=== PATIENT | male | born 1970 | race Caucasian/White ===

== ENCOUNTER → 2016-05-10 | Outpatient (CLI) | payer BC ==
--- NOTE | 2016-05-10 12:01 | DI ---
MRI THORACIC SPINE W/O CN,05/10/2016 10:52 AM: Clinical History: Wedge compression fracture of the 12th thoracic vertebral body. Previous Exam: MRI lumbar spine performed April 22 Findings: Multiplanar MR images are obtained through the thoracic spine without contrast. There is a small broa d-based disc bulge involving the T7/8 intervertebral disc with a 2 mm broad-based disc bulge. There i s normal signal within the thoracic spinal cord. There is normal course and caliber. There is some very mild compression of the 12th thoracic vertebral body without any significant edema . There are some mild endplate edema, but no marrow edema. There is no neural foraminal narrowing at any level. Impression: No evidence of acute compression. There is some very mild anterior wedging of the 12th thoracic verte bral body, but no evidence of acute compression fracture.
== END ==
LOC: MRI 10:48
PROVIDERS: ATTEND Physician Assistant
DX: S22.080A Wedge compression fracture of T11-T12 vertebra, initial encounter for closed fracture (principal); M47.814 Spondylosis without myelopathy or radiculopathy, thoracic region
CPT/HCPCS: 72146

== ENCOUNTER 2018-04-10 08:55 | Inpatient (IN) ==
[2018-04-10] MEDS ORDERED: ONDANSETRON 4 MG/2 ML VIAL IVP ONE (09:14)
[2018-04-10] MEDS ORDERED: Sodium Chloride 0.9% 1,000 ML PRIMARY IV ONE (09:14)
[2018-04-10] MEDS ORDERED: MORPHINE SULFATE 4 MG/1 ML IVP ONE (09:14)
--- NOTE | 2018-04-10 09:19 | PDOC ---
Abdomen/Flank HPI - General Chief Complaint: Abdomen Pain Stated Complaint: ABD PAIN X3 DAYS, GALL STONES ON US Date Seen by Provider: 04/10/18 Time Seen by Provider: 09:12 Source: POSITIVE: Patient Exam Limitations: POSITIVE: No limitations Nurse's Notes Reviewed & Considered: Yes - History of Present Illness Initial Comments: This is a well-developed, well-nourished, 48-year-old male, with right upper quadrant abdominal pain. Patient was seen in the emergency room Saturday of this week for right upper quadrant abdominal pain that was sudden in onset. Patient had eaten earlier in the evening and subsequently developed right upper quadrant abdominal pain then nausea vomiting. CT scan showed no acute abnormalities. The ER doctor scheduled the patient for an outpatient ultrasound which was performed this morning. Ultrasound this morning showed thickening of the gallbladder wall with fluid around the gallbladder itself concerning for cholecystitis. Patient was directed to return to the emergency room for further evaluation. At this time he denies any headache, no sore throat, no chest pain, he does have pain with deep respirations but no shortness of breath. He does have nausea but no vomiting, positive for right upper quadrant abdominal pain. He denies any diarrhea, no hematuria or dysuria, no rashes, no myalgias or arthralgias. Patient states his pain has been controlled with the medicine he was given on the and denies any fever or chills but does have sweats and associates these with increased pain. Body Location Affected: REPORTS: Abdomen Timing: REPORTS: Constant Duration: <1 week Severity: Severe Quality: REPORTS: "Pain" Abdominal Pain Onset Location: REPORTS: RUQ Abdominal Pain Radiation: REPORTS: RUQ Context: REPORTS: None Modifying Factors: improves with: Analgesics Associated Symptoms: REPORTS: Diaphoresis, Nausea, Vomiting Similar Symptoms Previously: No Recent Care Received: REPORTS: Denies Any Prior Injuries Related to Current Complaint?: No - Patient Home Medications Home Medications: Home Medications Ibuprofen [Advil] 1 tab PO PRN tab 05/08/16 Omeprazole Magnesium [Prilosec Otc] 20 mg PO DAILY 04/07/18 Hydrocodone/Acetaminophen [Hydrocodon-Acetaminophen 5-325] 1 ea PO Q4-6H PRN 04/10/18 - Patient Allergies Allergies/Adverse Reactions: Allergies Allergy/AdvReac Type Severity Reaction Status Date / Time No Known Allergies Allergy Verified 04/10/18 09:00 Past Medical History - heen HEENT History: Denies History Cardiovascular History: Denies History Respiratory History: Denies History Gastrointestinal History: GERD, Gallbladder Disease Genitourinary History: Denies History Endocrine History: Denies History Musculoskeletal History: Denies History Prosthesis or Implant: No Neurological History: Denies History Blood Disorders: Denies History Psychiatric History: Denies History Male Reproductive History: Denies History Cancer History: Denies History In Past Year Been Physically Harmed or Verbally Threatened: No History of MDRO: No Tobacco Use: Never Smoker Alcohol Use: Rarely In the Past 12 Months, Have Used or Abuse Any Substance: None Previous Surgical History: Yes Type / Date of Surgery: C-7 laminectomy/back surgery/tonsils Anesthesia Reactions: No Malignant Hyperthermia: No Significant Family History: No pertinent family hx ROS - Limitations ROS Limitations: No Limitations Constitution: REPORTS: Diaphoresis Cardiovascular: REPORTS: Denies Cardiac Symptoms Respiratory: REPORTS: Hurts To Breathe Neurological: REPORTS: Denies Neuro Symptoms Gastrointestinal: REPORTS: Abdominal Pain, Nausea, Vomitting Endocrine: REPORTS: Denies Symptoms Musculoskeletal: REPORTS: Denies MS Symptoms Genitourinary: REPORTS: Denies Symptoms Eyes: REPORTS: Denies Symptoms ENT: REPORTS: Denies Symptoms Skin: REPORTS: Denies Skin Symptoms Lympathic: REPORTS: Denies Lympathic Symptoms Immunologic: POSITIVE: Denies Symptoms Psychiatric: POSITIVE: Denies Psych Symptoms Abdominal/Flank Pain PE - General Appearance General Appearance: POSITIVE: Alert, Cooperative, No Acute Distress, No Evidence of Trauma - HEENT HEENT: POSITIVE: Head Inspection Nml, Eyes Inspection Nml, Ears Inspection Nml, Nose Inspection Nml, Oral/Dental Inspect. Nml, Pharynx Inspect. Nml, PERRL, EOMI - Neck Neck: POSITIVE: Normal Inspection, No Apparent Injury - Respiratory Respiratory: POSITIVE: No Respiratory Distress, Breath Sounds Normal, Chest Non- Tender - Cardiovascular Cardiovascular: POSITIVE: Regular Rate and Rhythm, Heart Sounds Normal, Strong Pulses Peripheral Pulses: Radial (R): 4+ - Chest Chest: POSITIVE: Non Tender - Abdomen Abdomen: Soft: (All Quadrants), Normal Bowel Sounds: (All Quadrants), Denies Tenderness: (LLQ), (RLQ), (LUQ), No Splenomegaly: (All Quadrants), No Hepatomegaly: (All Quadrants), No Guarding: (LUQ), (RLQ), (LLQ), No Rebound: (All Quadrants), No Palpable Pulse: (All Quadrants), No Palpabale Mass: (All Quadrants), No Distention: (All Quadrants), No Rigidity: (All Quadrants), Tenderness Noted: (RUQ), Guarding: (RUQ) - Back Back: POSITIVE: Normal Inspection - Skin Skin: POSITIVE: Intact, Normal For Race, Warm, Dry, No Rash - Extremities Extremity: Non-Tender: (All Extremities), Normal ROM: (All Extremities), Normal Inspection: (All Extremities), Pelvis Stable: (All Extremities) - Neurological Neurological: POSITIVE: Affect Apporpriate, Oriented X3, Motor Normal, Sensation Normal - Psychological Psychiatric: POSITIVE: Affect Appropriate, Mood Appropriate Abdomen Progress - Results Reviewed by me Xrays/CTs/US Reviewed by me: Yes Discussed with Radiologist: Yes Lab Results Reviewed by Me: Yes CBC and BMP: 04/10/18 09:26 04/10/18 09:26 - Patient's Progress Pain Medication Addressed: POSITIVE: Yes Re-examine Time: 10:18 Status: POSITIVE: Improved MDM / ED Course: Patient was evaluated, an IV started, blood drawn and sent to the lab for studies. Review of his ultrasound obtained earlier this morning and was obtained. Findings: Ultrasound shows cholelithiasis with cholecystitis. CBC shows a white count of 13.91 hemoglobin and hematocrit platelets are normal. Venous blood gas shows a pH of 7.48, PCO2 of 32, bicarbonate 23, base excess is 0. CMP shows potassium at 3.7. CRP is elevated at 16.7. Magnesium is 1.8. Amylase is 46, lipase is 23. Assessment:: Cholelithiasis with cholecystitis. Plan: Patient receives normal saline, morphine, Zofran, and Zosyn. He is being admitted by the hospitalist and consultation is made with general surgery. Surgeon will see the patient on the floor. - Consult Consult (If Yes, Name of Consulting MD & Time Called): Yes (Dr. Redding 1015hrs, Dr. Sands 1020 hrs.) Consulting MD will see pt:: [facility] [place] Admit Counseled: POSITIVE: Patient, Family, RE: Lab Results, RE: Radiology Results, RE: DX, RE: Need for F/U Patient Care Time - Estimated PCT Patient Care Time (In Minutes): 20 Vital Signs - VS Reviewed Vital Signs Reviewed: Yes Discharge Clinical Impression: Cholecystitis, Cholelithiasis Discharge Disposition: Admit to Inpatient Condition: Stable Follow Up With: NONE,NONE [Primary Care Provider] - Date Decision to Admit to Inpatient: 04/10/18 Time Decision to Admit to Inpatient: 10:18
[2018-04-10 09:26] LABS: VENOUS PH 7.48 (7.32-7.42)
[2018-04-10 09:33] LABS: BASOPHILS # (AUTO) 0.02 10*3/UL; BASOPHILS % (AUTO) 0.1 % (0-1); EOSINOPHILS % (AUTO) 0.7 % (0-8); Hematocrit [HCT] 46.7 % (42.0-52.0); Hemoglobin [HGB] 16.6 g/dL (14.0-18.0); LYMPHOCYTES # (AUTO) 2.07 10*3/uL; MEAN CORPUSCULAR HEMOGLOBIN 31.6 PG (27-31); MEAN CORPUSCULAR HGB CONC 35.5 g/dL (33-37); MEAN CORPUSCULAR VOLUME 88.8 FL (80-90); MEAN PLATELET VOLUME 11.1 FL (7.4-12.2); MONOCYTES % (AUTO) 13.7 % (5-15); NEUTROPHILS # (AUTO) 9.77 10*3/UL; NEUTROPHILS % (AUTO) 70.2 % (50-80); RED BLOOD COUNT 5.26 10^6/uL (4.70-6.10)
[2018-04-10 09:42] LABS: BLOOD UREA NITROGEN 8 mg/dL (7-22); LIPASE 23 IU/L (23-300); SERUM ALBUMIN 4.5 g/dL (3.5-4.8)
[2018-04-10 09:44] LABS: PLATELET MORPHOLOGY COMMENT NORMAL MORPHOLOGY (NORM); RBC MORPHOLOGY COMMENT NORMAL MORPHOLOGY (NORM); WBC MORPHOLOGY COMMENT NORMAL MORPHOLOGY (NORM)
[2018-04-10] MEDS ORDERED: Piperacillin/Tazobactam Inj 3.375 GM in Sodium Chloride 0.9% 100 ML IV ONE (10:19)
[2018-04-10] MEDS ORDERED: ONDANSETRON 4 MG/2 ML VIAL IVP PRN (11:54)
[2018-04-10] MEDS ORDERED: LIDOCAINE W/ SODIUM BICARB 0.5 ML SYR SUBD PRN ×2 (11:54→14:09)
[2018-04-10] MEDS ORDERED: ACETAMINOPHEN 325 MG TABLET PO PRN (11:54)
--- NOTE | 2018-04-10 12:02 | PDOC ---
HPI - History of Present Illness Date of Service: 04/10/18 Time of Service: 12:00 Chief Complaint: Abdominal pain of 2 days' duration History of Present Illness: This is a 48 years old male with past medical history significant for history of GERD who presented to the hospital history of abdominal pain of 2 days' duration, he came into the ER on Saturday with abdominal pain felt in right upper mid epigastric pain, he did vomit that night, he did have a CT of the abdomen which was negative then and he was booked to have an ultrasound of his gallbladder today. He continued to have the pain he takes pain medication for it. He is been on clear liquid mostly. Today an ultrasound did show gallstones with findings suggestive of acute cholecystitis so he was sent to the ER. In the ER did show elevated white count and CRP was also elevated. He was given fluids and antibiotics and was admitted. Currently he rates his pain maybe 3 out of 10. There is no radiation elsewhere. No diarrhea. The vomiting did stop. No fever but he did have some shakes on Saturday. Past Medical History Medical History: 1. History of GERD Surgical History: 1. History of tonsillectomy. 2. History of lumbar discectomy. 3. History of cervical spine surgery Family History: Reviewed an Not Pertinent Past Social History: He does not smoke but he chews, rarely drinks no drugs. Tobacco Use: Never Smoker Do you dip or chew tobacco: Yes In the Past 12 Months, Have Used or Abuse Any of the Following Substance: None Alcohol Use: Rarely Medication / Allergies Home Medications: Home Medications Medication Instructions Recorded Confirmed Type Ibuprofen [Advil] 1 tab PO PRN tab 05/08/16 04/10/18 History Omeprazole Magnesium [Prilosec Otc] 20 mg PO DAILY 04/07/18 04/10/18 History Hydrocodone/Acetaminophen 1 ea PO Q4-6H PRN 04/10/18 04/10/18 History [Hydrocodon-Acetaminophen 5-325] Allergies/Adverse Reactions: Allergies Allergy/AdvReac Type Severity Reaction Status Date / Time No Known Allergies Allergy Verified 04/10/18 09:00 Review of Systems - Review of Systems All Systems: Reviewed & No Additional Complaints Except as Stated Exam - Vitals Vital Signs: Vital Signs Temperature 98.8 F Temperature Source Temporal Artery Scan Pulse Rate [Pulse Oximeter 99 Right] Pulse Rate 88 Respiratory Rate 16 Blood Pressure [Left Arm] 105/85 Blood Pressure 116/77 Pulse Ox 94 Oxygen Delivery Method Room Air Height 5 ft 10 in Weight 175 lb - General General Appearance: No Acute Distress, Cooperative - Head Head Exam: Normal Inspection - Eye Eye Exam: POSITIVE: Normal Appearance - ENT ENT Exam: POSITIVE: Normal Exam - Neck Neck Exam: Normal Inspection - Respiratory Respiratory Exam: POSITIVE: Clear to Auscultation - Bilaterally - Cardiovascular Additional Cardiovascular Details: Somewhat decreased breath sound more on the right lower lung. - GI/Abdominal GI/Abdominal Exam: POSITIVE: Normal Bowel Sounds, Non Distended, Soft, No Organomegaly Additional GI/Abdominal Exam Details: We did notice tenderness in the epigastric and right upper quadrant area. - Rectal Rectal Exam: POSITIVE: Deferred - External Exam: POSITIVE: Deferred Exam: POSITIVE: Deferred - Extremities Extremities Exam: POSITIVE: Normal Inspection - Back Back Exam: POSITIVE: Normal Inspection - Neurological Neurological Exam: POSITIVE: Alert, Oriented x 3, CN II-XII Intact, No Facial Droop, Speech Intact / Clear, Moves All Extremities Equally - Psychiatric Psychiatric Exam: POSITIVE: Normal Affect - Integumentary Integumentary Exam: POSITIVE: Normal Color Results - Labs CBC and BMP: 04/10/18 09:26 04/10/18 09:26 - Imaging Status: Report Reviewed by Me (US abdomen 1. Cholelithiasis with constellation of findings concerning for acute cholecystitis. The patient was directed to report to the emergency department for definitive management.) Assessment and Plan - Patient Problems (1) Cholecystitis Current Visit: Yes Status: Acute Comment: I Did speak with Dr. Redding, will put him on clear liquid, antibiotics and IV pain medication. Will put him on nothing by mouth after midnight. He will see him later on today likely surgery tomorrow. Code(s): K81.9 - Cholecystitis, unspecified
[2018-04-10] MEDS: MORPHINE SULFATE 2 MG/1 ML IVP PRN ×4 (13:04→21:52)
--- NOTE | 2018-04-10 14:04 | CONSULT ---
Consult Note - Consult Consult Date: 04/10/18 Reason for Consult: PreOp Consulation : General Surgery Requesting Physician: Dr. Yash Bonner Primary Care Provider: NONE NONE - History of Present Illness History of Present Illness: 40-year-old gentleman who on Saturday night developed some midepigastric rapper quadrant abdominal pain. He came in the emergency department is felt to have biliary colic. His brought back today to have an ultrasound. Today's white count is elevated at 14,000. Ultrasound showed cholelithiasis and thickened gallbladder wall and paracystic fluid indicating acute cholecystitis. Eyes any fevers or chills. Past Medical History Medical History: 1. History of GERD Surgical History: 1. History of tonsillectomy. 2. History of lumbar discectomy. 3. History of cervical spine surgery Family History: Reviewed an Not Pertinent Past Social History: He does not smoke but he chews, rarely drinks no drugs. Tobacco Use: Never Smoker Do you dip or chew tobacco: Yes In the Past 12 Months, Have Used or Abuse Any of the Following Substance: None Alcohol Use: Rarely Medication / Allergies Home Medications: Home Medications Medication Instructions Recorded Confirmed Type Ibuprofen [Advil] 1 tab PO PRN tab 05/08/16 04/10/18 History Omeprazole Magnesium [Prilosec Otc] 20 mg PO DAILY 04/07/18 04/10/18 History Hydrocodone/Acetaminophen 1 ea PO Q4-6H PRN 04/10/18 04/10/18 History [Hydrocodon-Acetaminophen 5-325] Allergies/Adverse Reactions: Allergies Allergy/AdvReac Type Severity Reaction Status Date / Time No Known Allergies Allergy Verified 04/10/18 09:00 Results - Labs CBC and BMP: 04/10/18 09:26 04/10/18 09:26 Exam - Vitals Vital Signs: Vital Signs Temperature 98.8 F Temperature Source Temporal Artery Scan Pulse Rate [Pulse Oximeter 99 Right] Pulse Rate 88 Respiratory Rate 16 Blood Pressure [Left Arm] 105/85 Blood Pressure 116/77 Pulse Ox 94 Oxygen Delivery Method Room Air Height 5 ft 10 in Weight 175 lb - General General Appearance: No Acute Distress, Cooperative - ENT ENT Exam: POSITIVE: Normal Exam - Neck Neck Exam: Normal Inspection, Full ROM - Respiratory Respiratory Exam: POSITIVE: Clear to Auscultation - Bilaterally - GI/Abdominal GI/Abdominal Exam: POSITIVE: Normal Bowel Sounds, Non Distended, Soft, No Hepatomegaly, No Splenomegaly Additional GI/Abdominal Exam Details: Right upper quadrant abdominal pain no rebound or rigidity Assessment and Plan - Patient Problems (1) Acute cholecystitis due to biliary calculus Current Visit: Yes Status: Acute Code(s): K80.00 - Calculus of gallbladder with acute cholecystitis without obstruction - Assessment / Plan Additional Assessment/Plan Details: I would recommend the patient having a laparoscopic cholecystectomy. I have discussed the pathophysiology about gallstones and gallbladder disease. I have discussed the risk of surgery and the potential complications that could occur w ith the surgery. I also discussed alternative treatment options. I have gone over the surgical technique with the patient. The patient understands this information. I also discussed the difference between single site using the da Courtney surgery and also the traditional laparoscopic surgery. The patient be scheduled at the first available date. Questions that the patient had were answered. CPT 59216
[2018-04-10] MEDS ORDERED: Nasal Sanitizer POPSWAB ampule 3 AMP (Nozin) PREOP DOSE ENOS SCH (14:15)
[2018-04-10] MEDS: Piperacillin/Tazobactam Inj 3.375 GM in Sodium Chloride 0.9% 100 ML IV SCH ×2 (16:06→21:52)
[2018-04-10] MEDS: NICOTINE 21 MG /DAY PATCH TRANSDERM SCH (17:37)
[2018-04-10] MEDS: Lactated Ringers 1,000 ML PRIMARY IV SCH (18:43)
[2018-04-10] MEDS ORDERED: PANTOPRAZOLE IV 40 MG VIAL IVP SCH (21:00)
[2018-04-11] MEDS: Lactated Ringers 1,000 ML PRIMARY IV SCH ×2 (00:04→08:30)
[2018-04-11] MEDS: MORPHINE SULFATE 2 MG/1 ML IVP PRN ×3 (01:27→07:12)
[2018-04-11] MEDS: Piperacillin/Tazobactam Inj 3.375 GM in Sodium Chloride 0.9% 100 ML IV SCH ×2 (04:18→09:56)
[2018-04-11 06:46] LABS: BASOPHILS # (AUTO) 0.02 10*3/UL; BASOPHILS % (AUTO) 0.2 % (0-1); EOSINOPHILS # (AUTO) 0.24 10*3/UL; EOSINOPHILS % (AUTO) 2.8 % (0-8); Hemoglobin [HGB] 14.5 g/dL (14.0-18.0); LYMPHOCYTES # (AUTO) 1.72 10*3/uL; MEAN CORPUSCULAR HEMOGLOBIN 31.9 PG (27-31); MEAN CORPUSCULAR HGB CONC 34.5 g/dL (33-37); MEAN CORPUSCULAR VOLUME 92.3 FL (80-90); MEAN PLATELET VOLUME 10.9 FL (7.4-12.2); MONOCYTES # (AUTO) 1.16 10*3/UL (0.3-0.8); MONOCYTES % (AUTO) 13.5 % (5-15); NEUTROPHILS # (AUTO) 5.46 10*3/UL; NEUTROPHILS % (AUTO) 63.3 % (50-80); RED BLOOD COUNT 4.55 10^6/uL (4.70-6.10)
[2018-04-11 07:10] LABS: BLOOD UREA NITROGEN 6 mg/dL (7-22); BUN/CREATININE RATIO 6.66 (6-20); SERUM ALBUMIN 3.3 g/dL (3.5-4.8)
[2018-04-11 07:17] LABS: PLATELET MORPHOLOGY COMMENT NORMAL MORPHOLOGY (NORM); RBC MORPHOLOGY COMMENT NORMAL MORPHOLOGY (NORM); WBC MORPHOLOGY COMMENT NORMAL MORPHOLOGY (NORM)
--- NOTE | 2018-04-11 08:01 | PDOC(PROG) ---
Date of Service: 04/11/18 Time of Service: 08:00 Interval History: Subjective Patient feels better today compared to yesterday. He rates his abdominal pain maybe 3 out of 10. No nausea or vomiting. Objective : Data - Labs CBC and BMP: 04/11/18 06:20 04/11/18 06:20 Objective : Exam - General General Appearance: No Acute Distress, Cooperative - Head Head Exam: Normal Inspection - Eye Eye Exam: Normal Appearance - ENT ENT Exam: Normal Exam - Neck Neck Exam: Normal Inspection - Respiratory Additional Respiratory Exam Details: Slightly decreased breath sounds right lung base otherwise clear - Cardiovascular Cardiovascular Exam: RRR - GI/Abdominal GI/Abdominal Exam: Normal Bowel Sounds, Non Tender, Non Distended, Soft, No Organomegaly - Rectal Rectal Exam: Deferred - External Exam: Deferred Exam: Deferred - Extremities Extremities Exam: Normal Inspection - Back Back Exam: Normal Inspection - Neurological Neurological Exam: Alert, Oriented x 3, CN II-XII Intact, No Facial Droop, Speech Intact / Clear, Moves All Extremities Equally - Psychiatric Psychiatric Exam: Normal Affect - Integumentary Integumentary Exam: Normal Color Assessment and Plan - Patient Problems (1) Cholecystitis Status: Acute Comment: He looks and feels better today. His abdomen is not tender today. Co ntinue antibiotics. He'll be on Ringer lactate instead of the NS with the potassium he will have his surgery at 10:00 today. Code(s): K81.9 - Cholecystitis, unspecified
[2018-04-11] MEDS: NICOTINE 21 MG /DAY PATCH TRANSDERM SCH (09:56)
[2018-04-11] MEDS ORDERED: Iothalamate Meglumine 30 ML VIAL IV ONE (10:18)
[2018-04-11] MEDS ORDERED: BUPIVACAINE 0.25% W/ EPI - 10 ML VIAL ONE (10:18)
[2018-04-11] MEDS ORDERED: LIDOCAINE MPF 2% - 5 ML (20 MG/1 ML) ONE (10:18)
[2018-04-11] MEDS ORDERED: fentaNYL Inj 250 MCG/5 ML VIAL ONE (10:18)
[2018-04-11] MEDS ORDERED: PROPOFOL 10 MG/1 ML (200 MG/20 ML) VIAL IV ONE (10:18)
[2018-04-11] MEDS ORDERED: Sodium Chloride 0.9% vial 50 ML ONE (10:18)
[2018-04-11] MEDS ORDERED: MIDAZOLAM 5 MG/1 ML ONE (10:18)
[2018-04-11] MEDS ORDERED: ROCURONIUM 10 MG/1 ML - 5 ML VIAL IVP ONE (10:19)
[2018-04-11] MEDS ORDERED: KETAMINE HCL 100 MG/2 ML SYRINGE IV ONE (10:22)
[2018-04-11] MEDS ORDERED: HYDROmorphone 2 MG/1 ML IVP ONE (10:30)
[2018-04-11] MEDS ORDERED: LIDOCAINE W/ SODIUM BICARB 0.5 ML SYR ONE (10:39)
[2018-04-11] MEDS ORDERED: HYDROmorphone 2 MG/1 ML ONE ×2 (10:40→10:42)
[2018-04-11] MEDS ORDERED: SUFENTANIL 50 MCG/1 ML ONE (11:19)
[2018-04-11] MEDS ORDERED: Lactated Ringers 1,000 ML PRIMARY IV ONE (11:20)
[2018-04-11] MEDS ORDERED: SUGAMMADEX SODIUM 200 MG/2 ML VIAL IV ONE (12:05)
[2018-04-11] MEDS ORDERED: KETOROLAC 30 MG/1 ML VIAL ONE (12:05)
--- NOTE | 2018-04-11 12:25 | GEN.OPNOTE ---
Operative Note Surgery Date: 04/11/18 Preoperative Diagnosis: Acute cholecystitis Postoperative Diagnosis: Cholelithiasis of the gallbladder with acute cholecystitis Procedure: Laparoscopic cholecystectomy with intraoperative cholangiogram Surgeon: Dave Redding MD [employer] Consultant: Khoa Pugh MD Anesthesia Provider: David Singh CRNA Anesthesia Type: General Estimated Blood Loss (mL): 25 Fluids: LR please see anesthesia notes in EMR Pathology: Gallbladder sent Indications: Patient has cholelithiasis with acute cholecystitis Findings: Patient acutely edematous gallbladder consistent with acute cholecystitis. Atrophic cholangio-gram show no ductal obstruction of the common bile duct. I do not see the hepatic duct. Complications: None Operative Summary: Patient was brought in the operating room. Placed in supine position. Given general anesthetic. Was prepped draped sterile fashion. Timeout performed per protocols. Quarter percent Marcaine was infiltrated at all trocar sites. Small incision made below the umbilicus. Veress needle inserted pneumoperitoneum obtained. After adequate pneumoperitoneum a 10 mm trocar was placed using the Visiport. Under direct laparoscopic visualization a 10 mm trocar subxiphoid and 2 -5 mm in the midclavicular and midaxillary line. Appropriate instrument were placed. The large-bore needle into the gallbladder and aspirated out are last thick fluid. There was no pus. Gallbladder grasped at the fundus retracted over the liver edge. Gallbladder was grasped at Kaden's pouch. The cystic duct was dissected free.The cystic duct was clipped near the gallbladder. Intraoperative cholangiocatheter was placed through an angiocatheter. I then opened up the cystic duct with scissors. Intraoperative cardiogram catheter was placed. C-arm was brought in an intraoperative cholangiogram was then done with the aid of the C-arm. There is no evidence of obstruction of the common bile duct and identified the common bile duct the right hepatic duct did not ever see our get the left hepatic duct to fill.. The C-arm was removed. The cholangiogram was then removed. The cystic duct was doubly clipped and divided. Likewise the cystic artery was dissected free 3 hemoclips placed and divided. The gallbladder was dissected off liver's edge using electrocautery. The gallbladder was then removed through a subumbilical incision. The abdominal cavity was irrigated until clear. The trochars were removed. The umbilicus incision was closed with 0 Vicryl suture to the fascia. The skin was reapproximated using 4-0 Vicryl simple sutures. The remainder trocar sites were 5 mm defects we will close. The remainder skin incisions closed with 4-0 Vicryl. Steri-Strips applied sterile dressings applied. Patient transferred to recovery room in stable condition. Counts were correct Patient Problems - Patient Problem List (1) Acute cholecystitis due to biliary calculus Current Visit: Yes Status: Acute Code(s): K80.00 - Calculus of gallbladder with acute cholecystitis without obstruction Category: Medical Procedure Codes - Surgical Procedures Primary Surgical Procedure: 02428 : Cholecsytectomy w/Cholangiograph
[2018-04-11] MEDS ORDERED: HYDROcodone-APAP 7.5 MG-325 MG TABLET PO PRN (12:34)
--- NOTE | 2018-04-11 12:50 | CRNA.PROGR ---
Anesthesia Recovery Phase I - Post Anesthesia Evaluation Patient's Condition on Arrival in Phase I: Stable Pain Level: 1
--- NOTE | 2018-04-11 12:51 | CRNA.PROGR ---
Anesthesia Time - Procedure/Recovery Time Start Date: 04/11/18 End Date: 04/11/18 Anesthesia : Time In: 10:49 Anesthesia : Time Out: 12:34 Anesthesia : Total Time: 105 - Total Anesthesia Time Total Anesthesia Time (minutes): 105 - Other Weight: 79.379 kg Height: 5 ft 10 in Body Mass Index (BMI): 25.1 Physical Status: P2 Anesthesia Type: General Anesthesia : ET
--- NOTE | 2018-04-11 13:16 | DI ---
XR CHOLANGIOGRAM INTRAOP 04/11/2018 11:15 AM History: [facility] [place] DI Comparison: Right upper quadrant ultrasound 04/10/2018, CT abdomen/pelvis 04/07/2018. Technique: An intraoperative fluoroscopic guided cholangiogram is performed. Findings/Impression: There is no extraluminal contrast. Common bile duct: Width is at the upper limits of normal without filling defect or stricture. Intrahepatic ducts: Normal course and caliber without filling defect or stricture, although the left hepatic ducts are not opacified. Cystic duct: There are filling defects versus strictures in the cystic duct close to the level of inj ection. The remaining course and caliber are within normal limits.
[2018-04-11] MEDS ORDERED: CALCIUM CARBONATE 500 MG (TUMS) CHEWABLE TABLET PO PRN (14:43)
[2018-04-11] MEDS ORDERED: OMEPRAZOLE 20 MG CAPSULE PO ONE (14:43)
[2018-04-11 16:44] VITALS: BP 120/82; RESP 18; TEMP 97.5; O2SAT 91
--- NOTE | 2018-04-14 12:15 | DCSUMMARY ---
Hospitalization Summary Admit Date: 04/10/2018 Discharge Date: 04/11/18 Hospital Course: Discharge diagnoses 1. Acute cholecystitis status post surgery 2. History of GERD 3. History of tonsillectomy Hospital course This is a 48 years old male with medical history significant for history of GERD who presented to the hospital with history of abdominal pain of 2 days' duration, he came into the ER on Saturday with abdominal pain felt in the right upper and mid epigastric pain he did vomit that night he did have a CT of the abdomen which was negative then he was booked to have an ultrasound of the gallbladder on the day of admission. He continued to have pain and he take pain medication for it. Ultrasound of the gallbladder showed gallstones with findings suggestive of acute cholecystitis so he was sent to the ER. His white count was elevated and CRP also was elevated. He was admitted to the hospital. We put him on IV antibiotics he was seen by Dr. Concepción Young and had surgery the next day. He was discharge postsurgery by Dr. Concepción Young. Discharge instructions Diet regular Activity as tolerated Medications Current Medication(s) Medication Instructions Recorded Confirmed Type Ibuprofen [Advil] 1 tab PO PRN tab 05/08/16 04/10/18 History Omeprazole Magnesium [Prilosec Otc] 20 mg PO DAILY 04/07/18 04/10/18 History Hydrocodone/Acetaminophen 1 ea PO Q4-6H PRN #20 tab 04/11/18 Rx [Hydrocodone-Acetamin 5-325 mg] Follow-up with PCP and with Dr. Redding Condition at discharge was stable for discharge Exam - Vitals Vital Signs: Vital Signs Temperature 97.5 F Temperature Source Temporal Artery Scan Pulse Rate [Pulse Oximeter 74 Right] Pulse Rate 79 Respiratory Rate 18 Blood Pressure [Right Arm] 120/82 Blood Pressure [Left Arm] 125/94 Blood Pressure 124/85 Pulse Ox 91 Oxygen Flow Rate 2L NC Oxygen Delivery Method Room Air Height 5 ft 10 in Weight 175 lb Patient Problems - Patient Problem List (1) Cholecystitis Status: Acute Code(s): K81.9 - Cholecystitis, unspecified Category: Medical
== END 2018-04-11 17:04 | disposition home or self-care (01) | DRG 419 ==
LOC: ER 08:55 → MED/SURG 11:21 → OPS 04-11 10:22 → MED/SURG 04-11 13:13
PROVIDERS: ADMIT Internal Medicine; ATTEND Internal Medicine